=== PATIENT | male | born 1980 | race Caucasian/White ===

== ENCOUNTER 2020-08-21 12:00 | Outpatient (CLI) | payer OTHER, SELFPAY | END 2020-08-21 12:01 | disposition home or self-care (01) | LOC: SLEEP 08-22 08:45 | PROVIDERS: PCP Family Medicine; Visit Provider Family Medicine | DX: G47.10 Hypersomnia, unspecified (principal) | CPT/HCPCS: G0399 ==

== ENCOUNTER 2020-09-05 20:00 | Outpatient (CLI) | payer OTHER, SELFPAY | END 2020-09-05 20:01 | disposition home or self-care (01) | LOC: SLEEP 09-06 08:36 | PROVIDERS: PCP Family Medicine; Visit Provider Family Medicine | DX: G47.31 Primary central sleep apnea (principal) | CPT/HCPCS: 95811 ==

== ENCOUNTER 2021-03-17 06:00 | Outpatient (RCR) | payer OTHER, SELFPAY | END 2021-03-25 23:59 | disposition home or self-care (01) | LOC: SOT 06:00 | PROVIDERS: PCP Family Medicine; Referring Provider Orthopaedic Surgery; Visit Provider Orthopaedic Surgery | DX: Z47.89 Encounter for other orthopedic aftercare (principal) | CPT/HCPCS: 97035; 97110; 97112; 97140; 97165 ==

== ENCOUNTER 2021-03-26 06:00 | Outpatient (RCR) | payer OTHER, SELFPAY | END 2021-04-24 23:59 | disposition home or self-care (01) | LOC: SOT 06:00 | PROVIDERS: PCP Family Medicine; Referring Provider Orthopaedic Surgery; Visit Provider Orthopaedic Surgery | DX: Z47.89 Encounter for other orthopedic aftercare (principal) | CPT/HCPCS: 97035; 97110; 97112; 97140 ==

== ENCOUNTER 2021-04-25 06:00 | Outpatient (RCR) | payer OTHER, SELFPAY | END 2021-05-25 23:59 | disposition home or self-care (01) | LOC: SOT 06:00 | PROVIDERS: PCP Family Medicine; Referring Provider Orthopaedic Surgery; Visit Provider Orthopaedic Surgery | DX: Z47.89 Encounter for other orthopedic aftercare (principal) | CPT/HCPCS: 97022; 97035; 97110; 97140 ==

== ENCOUNTER 2021-05-26 06:00 | Outpatient (RCR) | payer OTHER, SELFPAY | END 2021-06-24 23:59 | disposition home or self-care (01) | LOC: SOT 06:00 | PROVIDERS: PCP Family Medicine; Referring Provider Orthopaedic Surgery; Visit Provider Orthopaedic Surgery | DX: Z47.89 Encounter for other orthopedic aftercare (principal) | CPT/HCPCS: 97022; 97035; 97110; 97140; 97168 ==

== ENCOUNTER 2021-06-25 06:00 | Outpatient (RCR) | payer OTHER, SELFPAY | END 2021-07-25 23:59 | disposition home or self-care (01) | LOC: SOT 06:00 | PROVIDERS: PCP Family Medicine; Referring Provider Orthopaedic Surgery; Visit Provider Orthopaedic Surgery | DX: Z47.89 Encounter for other orthopedic aftercare (principal) | CPT/HCPCS: 97022; 97168; L3906 ==

== ENCOUNTER → 2022-04-20 15:38 | Outpatient (BNVA) | payer BC, SELFPAY | PROVIDERS: PCP Family Medicine; Visit Provider Nurse Practitioner Family | DX: E78.5 Hyperlipidemia, unspecified (principal); I10 Essential (primary) hypertension; R73.03 Prediabetes; Z68.32 Body mass index [BMI] 32.0-32.9, adult | CPT/HCPCS: 80053 ==

== ENCOUNTER 2023-07-27 11:49 | Outpatient (CLI) | payer BC, SELFPAY ==
--- NOTE | 2023-07-27 11:50 | ECG_ITS ---
[facility] Test Date: 2023-07-27 Pat Name: Jaswinder Joseph Department: Room: Gender: Male Physical Security Manager: : 1980 Requested By: Vahe Soria Order Number: [id number] Rangel MD: Siva Torres M.D. Interpretive Statements NAME OF STUDY: TREADMILL STRESS TEST INDICATION: [OLEA, ] EXERCISE DATA: The patient was exercised by Hebert protocol. Baseline heart rate was 77 beats per minute. Baseline blood pressure was 153/97 millimeters of mercury. Target heart rate was 151 beats per minute. Maximum heart rate achieved was 154, which was 101% of the target heart rate. Maximum blood pressure was 204/107 millimeters of mercury. Total exercise time was 9 minutes 11 seconds. Maximum METs achieved was 13.5. The reason for ending the test was completion of protocol. ELECTROCARDIOGRAM: BASELINE: Showed sinus rhythm, normal axis, no significant ST-T changes at the baseline noted. [] EXERCISE: At the peak exercise level, [] No significant ST-T changes suggestive of ischemia noted. [] RECOVERY: During the recovery period, heart rate dropped appropriately. No significant ST-T changes in the recovery suggestive of ischemia noted. [] CONCLUSION: 1. Exercise capacity is excellent. 2. Heart rate response was appropriate 3. Blood pressure response was appropriate 4. Symptoms not suggestive of ischemia. 5. Stress test is negative for ischemia Electronically Signed On 08-15-2023 20:19:00 INVENTORY COORDINATOR by Siva Torres M.D. [email or web address]
[2023-07-27 14:30] VITALS: BP 173/98; PULSE 106
== END 2023-07-27 11:50 | disposition home or self-care (01) ==
PROVIDERS: PCP Family Medicine; Visit Provider Family Medicine
DX: R06.09 Other forms of dyspnea (principal); R07.9 Chest pain, unspecified
CPT/HCPCS: 93017

== ENCOUNTER → 2025-05-30 07:02 | Outpatient (BNVA) | payer BC, SELFPAY | PROVIDERS: PCP Family Medicine; Visit Provider Podiatrist Foot & Ankle Surgery | DX: M25.572 Pain in left ankle and joints of left foot (principal); M76.62 Achilles tendinitis, left leg | CPT/HCPCS: 73610 ==